=== PATIENT | female | born 1945 | race Caucasian/White ===

== ENCOUNTER → 2016-10-12 | Outpatient (CLI) | payer MEDICARE, BC ==
--- NOTE | 2016-10-12 12:33 | RADRPT ---
PROCEDURE: XR pelvis/left hip. CLINICAL INDICATION: Hip pain TECHNIQUE: AP pelvis/AP and lateral left hip views available for review. COMPARISON: 05/17/2015 FINDINGS: There is no change in the left total hip replacement. There is no evidence of loosening of the prost hesis. There is no evidence of hardware failure. There is diffuse osteopenia. No fractures are iden tified. No osseous lesions are present. The left hip is unremarkable. The SI joints are unremarkab le. The soft tissues are unremarkable. IMPRESSION: No change in left total hip replacement Diffuse osteopenia RPTAT: HGDB .Juwan Loredo MD, MD Date Time Electronically viewed and signed by .Juwan Loredo MD, MD on 10/12/2016 12:32 .B/
== END | disposition home or self-care (01) ==
LOC: HKI 11:13
PROVIDERS: ATTEND Orthopaedic Surgery
DX: Z47.89 Encounter for other orthopedic aftercare (principal); T84.061A Wear of articular bearing surface of internal prosthetic left hip joint, initial encounter; Z96.642 Presence of left artificial hip joint
CPT/HCPCS: 73502; G0463

== ENCOUNTER → 2016-12-16 | Outpatient (CLI) | payer MEDICARE, BC | END | disposition home or self-care (01) | LOC: HKI 09:56 | PROVIDERS: ATTEND Orthopaedic Surgery | DX: T84.061A Wear of articular bearing surface of internal prosthetic left hip joint, initial encounter (principal); Z96.642 Presence of left artificial hip joint | CPT/HCPCS: G0463 ==

== ENCOUNTER 2016-12-22 11:23 | Inpatient (IN) | payer MEDICARE, BC ==
[2016-12-16 12:06] VITALS: BMI 24.4
[~2016-12-22] VITALS: Ht 162.6 cm; Wt 62.7 kg
[2016-12-22] VITALS (23 sets, daily range): BP systolic 105–141; BP diastolic 58–73; PULSE 52–90; RESP 11–22; Ht 162.6 cm; Wt 62.7 kg
[~2016-12-22 11:23] MED LIST: BUPIVACAINE LIPOSOME/PF 266 MG/20 ML VIAL INFIL SCH; CELECOXIB 400 MG PO X1 DOSE PO SCH; EXPAREL NOTE (BUPIVICAINE LIPOSOMAL) XX SCH; LACTATED RINGER'S 1,000 ML IV SCH; PAIN COCKTAIL - VANCOMYCIN IRR SCH; PREGABALIN 300 MG PO X1 PO SCH; SOD CHLORIDE 0.9% IV SCH; SOD CHLORIDE 0.9% IVPB SCH; TRANEXAMIC ACID IV SCH; TRANEXAMIC ACID IVPB SCH; VANCOMYCIN 1 GM/NS 250 ML X1 BEFORE INCISION IVPB SCH; oxyCODONE (CR) 10 MG TAB [oxyCONTIN] X1 DOSE PO SCH; traMADOL 50 MG TAB X 1 DOSE PO SCH
[2016-12-22] MEDS ORDERED: NEOSTIGMINE 3 MG/3 ML SYRINGE ONE (13:28)
[2016-12-22] MEDS ORDERED: ROCURONIUM 50 MG INJ ONE (13:28)
[2016-12-22] MEDS ORDERED: FENTAnyl 50 MCG/ML VIAL ONE (13:28)
[2016-12-22] MEDS ORDERED: MIDAZOLAM 1 MG/ML 2 ML INJ ONE (13:28)
[2016-12-22] MEDS ORDERED: PROPOFOL 20 ML ONE (13:28)
[2016-12-22] MEDS ORDERED: ONDANSETRON 4 MG INJ ONE (13:28)
[2016-12-22] MEDS ORDERED: DEXAMETHASONE 4 MG/ML 1 ML INJ ONE (13:28)
[2016-12-22] MEDS ORDERED: CEFAZOLIN 1 GM INJ ONE (13:28)
[2016-12-22] MEDS ORDERED: GLYCOPYRROLATE 0.4 MG INJ ONE (13:28)
[2016-12-22] MEDS ORDERED: PROPOFOL 100 ML ONE (13:29)
[2016-12-22] MEDS ORDERED: ETOMIDATE 20 MG INJ ONE (13:29)
[2016-12-22] MEDS ORDERED: KETOROLAC 30 MG INJ ONE (14:02)
[2016-12-22] MEDS ORDERED: SUGAMMADEX SODIUM 200 MG/2 ML VIAL IV ONE ×2 (14:03→16:49)
[2016-12-22] MEDS ORDERED: VANCOMYCIN 1 GM INJ ONE (14:15)
[2016-12-22] MEDS ORDERED: POLYMYXIN B 500000 UNIT INJ ONE (14:15)
[2016-12-22] MEDS ORDERED: TOBRAMYCIN 1.2 GM POWDER ONE (14:15)
[2016-12-22] MEDS ORDERED: SODIUM CL BACTERIOSTATIC 30 ML INJ ONE (14:15)
[2016-12-22] MEDS ORDERED: BACITRACIN 50000 UNITS INJ ONE (14:19)
--- NOTE | 2016-12-22 14:25 | HPN ---
Date/Time of Note Date/Time of Note DATE: 12/22/16 TIME: 14:22 Interval H&P Admission Note Pt. seen H&P reviewed: No system changes No change from H&P by Dr. Andrey Damon on 12/18/16 LUKE ARMENTA MD Dec 22, 2016 14:25
[2016-12-22] MEDS ORDERED: HEPARIN 1000 UNITS/ML 10 ML INJ ONE (15:04)
[2016-12-22] MEDS ORDERED: EPHEDrine SULFATE 50 MG/5 ML SYG IV PRN (16:00)
[2016-12-22] MEDS ORDERED: LABETALOL HCL 20MG INJ IV PRN (16:00)
[2016-12-22] MEDS ORDERED: HYDROmorphONE (0.2 MG/ML) 10ML SYG IV PRN ×3 (16:00)
[2016-12-22] MEDS ORDERED: MEPERIDINE 25 MG INJ IV PRN (16:00)
[2016-12-22] MEDS ORDERED: OXYCODONE/ACETAMINOPHEN (5/325) TAB PO PRN ×2 (16:00)
[2016-12-22] MEDS ORDERED: hydrALAzine 20 MG INJ IV PRN (16:00)
[2016-12-22] MEDS ORDERED: MIDAZOLAM 1 MG/ML 2 ML INJ IV PRN (16:00)
[2016-12-22] MEDS ORDERED: TRIMETHOBENZAMIDE 100 MG/ML VIAL IM PRN (16:00)
[2016-12-22] MEDS ORDERED: ONDANSETRON 4 MG INJ IV PRN ×2 (16:00→18:00)
[2016-12-22] MEDS ORDERED: DIPHENHYDRAMINE 50 MG INJ IV PRN (16:00)
[2016-12-22] MEDS ORDERED: FENTAnyl 50 MCG/ML VIAL IV PRN ×3 (16:00)
--- NOTE | 2016-12-22 17:58 | OPR ---
Date/Time of Note Date/Time of Note DATE: 12/22/16 TIME: 17:56 Operative Report Free Text/Dictation Dictation # [id number] Preoperative Diagnosis Left FARIDA Polyethylene Wear Postoperative Diagnosis Same Operation/Procedure Performed Revision Left FARIDA Surgeon: LUKE ARMENTA MD animal assisted therapist: CASSANDRA NYE PA-C Anesthesia: general, spinal Estimated Blood Loss: 250 - 300 ml's Specimens Aerobic and anaerobic culture x 2 plus synovial tissue Grafts/Implants Depuy Duraloc liner and femoral head Complications: None LUKE ARMENTA MD Dec 22, 2016 17:58
[2016-12-22] MEDS ORDERED: HYDROCODONE/APAP (5/325) TAB PO PRN (18:00)
[2016-12-22] MEDS ORDERED: NA PHOSPHATE/BIPHOS 133 ML ENEMA PR PRN (18:00)
[2016-12-22] MEDS ORDERED: NACL 0.9% 3 ML SYG IV SCH (18:00)
[2016-12-22] MEDS ORDERED: DIPHENHYDRAMINE 25 MG CAP PO PRN (18:00)
[2016-12-22] MEDS ORDERED: ASPIRIN (EC) 325 MG TAB PO ONE (18:00)
[2016-12-22] MEDS ORDERED: HYDROmorphONE 1 MG/ML SYG IV PRN (18:00)
[2016-12-22] MEDS ORDERED: MAGNESIUM HYDROXIDE 30ML CUP PO PRN (18:00)
[2016-12-22] MEDS ORDERED: BISACODYL 10 MG SUPP PR PRN (18:00)
--- NOTE | 2016-12-22 18:11 | PN ---
Date/Time of Note Date/Time of Note DATE: 12/22/16 TIME: 18:09 Assessment/Plan Lines/Catheters IV Catheter Type (from Nrsg): Saline Lock Assessment/Plan Assessment/Plan Stable in PACU, s/p revision left FARIDA -continue Ancef until final culture results -pain meds as needed -ASA/SCDs -posterior hip precautions -OOB with PT -check AM labs -monitor drain -d/c bolivar in AM XR of the left hip is pending at this time Subjective 24 Hr Interval Summary Stable in PACU. Denies pain. Moving all extremities. Exam/Review of Systems Vital Signs Vitals Vital Signs Date Time Temp Pulse Resp B/P Pulse Ox O2 Delivery O2 Flow Rate FiO2 12/22/16 17:48 98.1 12/22/16 12:48 72 16 129/60 99 Room Air Exam Free Text/Dictation Hemovac: minimal Dressing dry Incision clean, dry, and intact without redness or drainage 5/5 Quadriceps, Tibialis Anterior, EHL, Gastroc, Soleus, Peroneals Normal sensation Palpable DT/PT, CR <2 sec No distal edema CASSANDRA NYE PA-C Dec 22, 2016 18:10
[2016-12-22 18:16] LABS: HEMATOCRIT 39.6 % (37.0-47.0); HEMOGLOBIN 13.1 g/dl (12.0-16.0)
[2016-12-22] MEDS: PANTOPRAZOLE (EC) 40 MG TAB PO SCH (18:28)
[2016-12-22] MEDS: traMADol 50 MG TAB PO SCH (18:29)
[2016-12-22] MEDS: LACTATED RINGER'S 1,000 ML IV SCH (18:30)
[2016-12-22] MEDS: CEFAZOLIN 2 GM/50 ML (PMX) 50 ML IVPB SCH (18:30)
--- NOTE | 2016-12-22 18:33 | RADRPT ---
PROCEDURE: Intraoperative imaging of the left hip with fluoroscopy. CLINICAL INDICATION: Left hip pain. Intraoperative. TECHNIQUE: Four images of the left hip were obtained in the operating room with portable equipment . No radiologist was in attendance. COMPARISON: 10/12/2016. FINDINGS: Images demonstrate placement of a total left hip arthroplasty. IMPRESSION: 1. Satisfactory intraoperative imaging of the left hip. RPTAT: QQ .Derrick Alberto MD, MD Date Time Electronically viewed and signed by .Derrick Alberto MD, on 12/22/2016 18:33 .R/
--- NOTE | 2016-12-22 18:37 | OPR ---
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 OPERATION PERFORMED: Revision left total hip arthroplasty. SURGEON: Luke Sampson MD PACS ADMINISTRATOR: CASSANDRA JOHNSON. COMPONENTS USED: DePuy Duraloc Howe 54 mm outer diameter x 32 mm inner diameter neutral polyethylene liner and 32+11 cobalt chrome femoral head with a 14/16 taper. SURGEON: Luke Sampson MD ANESTHESIA: Spinal plus general endotracheal intubation plus periarticular injection. ANESTHESIOLOGIST: BARBY VILLATORO MD. ESTIMATED BLOOD LOSS: 300 mL. INTRAVENOUS FLUIDS: 3000 mL crystalloid. SPECIMENS: Aerobic and anaerobic culture of joint fluid and synovial tissue for culture. DRAINS: Hemovac x1. COMPLICATIONS: None. DISPOSITION: Patient tolerated the procedure well and was taken to the recovery room in stable condition. INDICATIONS: The patient is a 71-year-old woman who underwent a left total hip arthroplasty through a posterior approach 25 years ago at another facility. 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 I felt she would benefit from a revision with a head liner exchange and possible allograft supplementation. The risks, benefits, alternatives of the procedure were explained in detail to the patient. I explained the risks to include but not be limited to bleeding and possible need for blood transfusion, infection, pain, stiffness, neurovascular injury, possible numbness, weakness, and/or paralysis anywhere from the hip down to the toes, fracture, instability, dislocation, leg length inequality, wear and/or loosening of the prosthesis and need for revision at a later date, wound healing problems, blood clots, pulmonary embolism and anesthetic complications such as heart attack, stroke, GI bleed, pneumonia and/or . Ample time was allowed for the patient to ask questions, all of which were addressed and answered. The patient understood the risks involved and wished to proceed. Informed consent was signed prior to the procedure. DESCRIPTION OF PROCEDURE: The left knee was initialed with a marking pen in the preoperative holding area to identify the correct operative site. The patient was brought to the operating room and transferred from the [facility] to the operating table, where she was administered a spinal anesthetic and then anesthetized and intubated. Time out was performed to confirm the left side was the correct operative site. She was given 1 gram of vancomycin 2 grams of intravenous Ancef within 1 hour prior to the incision. The patient was then turned in lateral decubitus position with the left side up. An axillary roll was placed under the right chest wall. She was secured into the pegboard and all bony prominences were well padded. The left hip and lower extremity were prepped and draped in usual sterile fashion. The posterolateral scar was excised. This was carried down to subcutaneous tissue and fascia with sharp dissection of the iliotibial band and gluteus hernandez muscle. Fascia were incised along the length of the wound. The gluteus hernandez muscle fibers were bluntly split and there was some fluid around the greater trochanteric claw which was swabbed for aerobic and anaerobic cultures allowed to clear with no evidence of purulent consistency. The posterior capsule and short external rotators were taken down off the posterior aspect of the greater trochanter and tagged it with #2 FiberWire. Synovial fluid was encountered and noted to be normal in color and consistency and swabbed for aerobic and anaerobic culture x2. The femoral head was dislocated from the acetabulum. The polyethylene liner had significant wear superiorly. The head was disimpacted from the trunnion. The head was a 28+8 head. The stem appeared well fixed with about 15 to 20 degrees of anteversion. The fibrous tissue around the acetabulum was debrided sharply to create a small pocket anteriorly for the trunnion to sit. Retractors were placed around the acetabulum. The acetabular component was well fixed. It had about 45 degrees of abduction and 20 to 25 degrees of anteversion. The polyethylene liner was removed with a screw and the locking ring was removed as well. The lateral short screws removed. I debrided in the hole the osteolytic lesion as best I could and irrigated with antibiotic saline and then injected 5 mL of Cerament bone void filler. This hardened. At this point, I trialed with various configurations. I found that the 54/32 neutral liner with a 32+11 head reproduced the best stability, leg length and offset. There was no available 28 liners anymore that were manufactured so we had to go up to the 32 liner. The 32 head only came in a +5 or a +11 head. The +5 head had some laxity and I did not feel the stability was optimal. The 32 + 11 head stability was quite good. There was 110 degrees of flexion. At 90 degrees of flexion and neutral abduction, the hip was stable posteriorly to 80 degrees of internal rotation. The hip came to full extension with no posterior impingement or anterior instability. In the position of sleep, the hip was stable posteriorly to 85 degrees of internal rotation. The Ranawat sign showed a combined forward flexion of 45 degrees. There was no shuck. A cross table AP pelvis was obtained showing the leg lengths and offsets to be equal. At this point, the trial head and liner were removed. A new locking ring was placed in the cup and a new 54/32 neutral polyethylene liner was opened and impacted into the acetabulum and sat flush circumferentially. The trunnion was debrided with a Bovie scratch pad to debride some mild trunnionosis. This was irrigated and dried and the real 32+11 cobalt chrome head was impacted on the trunnion and reduced in the acetabulum. Hip was taken through range of motion, had the same range of motion and stability with the trials. The hip was irrigated with Betadine and saline and then antibiotic saline pulsatile lavage. The soft tissues were infiltrated with a mixture of 0.5% ropivacaine, 4 mg Duramorph and 30 mg Toradol and a 266 mg of liposomal bupivacaine. This was done prior to irrigating with Betadine and saline. Stimulan beads mixed with tobramycin and vancomycin were mixed and placed in the deep portion of the wound. A Hemovac drain was placed in the deep portion of the wound and brought out through the anterolateral thigh. The posterior capsule was repaired back to the greater trochanter through drill holes with #2 FiberWire. The quadratus femoris was repaired back to the vastus lateralis with interrupted #1 Vicryl. The sciatic nerve was palpated and noted to be intact with no undue tension. The iliotibial band and gluteus hernandez muscle fascia was repaired with a running # 2 Stratafix. The subcutaneous layer was irrigated and closed with 2-0 Stratafix and then the skin was closed with 3-0 Vicryl and sarwat on the skin. Skin edges were sealed with Dermabond. The drain was secured with 3-0 nylon. Sponge and needle counts correct at the end of case. The wound was covered with silver Mepilex and the drains secured with 4 x 4 and Tegaderm. The patient was taken out of the pegboard and transferred to the [facility] where she was placed in supine position with an abduction pillow between her legs. She was awakened, extubated and taken to the recovery room in stable condition. Dictated By: LUKE GARCIA/[place] Conf#: [id number] DID#: [id number] MTDD
[2016-12-22 18:39] LABS: CALCIUM 8.6 mg/dl (8.4-10.2); CREATININE 0.63 mg/dl (0.44-1.00); POTASSIUM 3.5 mmol/L (3.5-5.1)
--- NOTE | 2016-12-22 19:05 | RADRPT ---
PROCEDURE: XR Hip 1 Views. CLINICAL INDICATION: Status post left hip surgery. TECHNIQUE: AP view of the left hip was performed. COMPARISON: October 12, 2016 FINDINGS: Left hip replacement is identified. Prosthetic components appear in appropriate position and alignm ent. New antibiotic beads are identified in the left hip. Surgical drain is identified in the left hip. No gross destructive bony lesions are seen. Diffuse osteopenia is noted. Soft tissue air is proc edural in nature. IMPRESSION: New antibiotic beads in the left hip. Left hip replacement. Prosthetic components appear in appropriate position and alignment. Surgical drain in the left hip. Osteopenia. RPTAT: AA .Alejandro Echevarria MD, MD Date Time Electronically viewed and signed by .Alejandro Echevarria MD, on 12/22/2016 19:04 .P/
--- NOTE | 2016-12-22 19:07 | RADRPT ---
PROCEDURE: XR Pelvis 1 View. CLINICAL INDICATION: Status post left hip surgery. TECHNIQUE: Single AP view of the pelvis. COMPARISON: Left hip x-ray October 12, 2016 FINDINGS: Left hip replacement is identified. Prosthetic components in appropriate position and alignment. N ew antibiotic beads are identified in the left hip. Surgical drain is seen over the left hip. Diff use osteopenia is observed. Moderate narrowing of the right hip joint is seen. Degenerative change s are noted in the lower lumbar spine. Martins catheter is identified over the lower pelvis. A few phleboliths are noted in the pelvis. Soft tissue air over the left hip is procedural in nature. IMPRESSION: Left hip replacement. Prosthetic components appear in appropriate position alignment. New antibiotic beads in the left hip. Surgical drain over the left hip. Osteopenia. Moderate osteoarthritis of the right hip. Degenerative changes in the lower lumbar spine. RPTAT: AA .Alejandro Echevarria MD, Date Time Electronically viewed and signed by .Alejandro Echevarria MD, on 12/22/2016 19:07 .P/
[2016-12-22] MEDS ORDERED: TRANEXAMIC ACID 630 MG in SOD CHLORIDE 0.9% 100 ML IVPB ONE (21:00)
[2016-12-22] MEDS: DOCUSATE SODIUM 100 MG CAP PO SCH (22:11)
[2016-12-23] VITALS (7 sets, daily range): BP systolic 87–122; BP diastolic 46–63; PULSE 62–66; RESP 14–22
[2016-12-23] MEDS ORDERED: TRANEXAMIC ACID 630 MG in SOD CHLORIDE 0.9% 100 ML IVPB ONE ×2
[2016-12-23] MEDS: traMADol 50 MG TAB PO SCH ×5 (00:57→23:37)
[2016-12-23] MEDS: LACTATED RINGER'S 1,000 ML IV SCH ×3 (01:43→17:43)
[2016-12-23] MEDS: CEFAZOLIN 2 GM/50 ML (PMX) 50 ML IVPB SCH ×3 (01:45→17:41)
[2016-12-23] MEDS: PANTOPRAZOLE (EC) 40 MG TAB PO SCH ×2 (05:12→17:42)
[2016-12-23 06:09] LABS: HEMATOCRIT 38.2 % (37.0-47.0); HEMOGLOBIN 12.2 g/dl (12.0-16.0)
[2016-12-23 06:37] LABS: CALCIUM 8.7 mg/dl (8.4-10.2); CREATININE 0.59 mg/dl (0.44-1.00); POTASSIUM 4.6 mmol/L (3.5-5.1)
[2016-12-23 07:07] LABS: ADD UMIC YES; UR ASCORBIC ACID NEGATIVE (NEGATIVE); UR BILIRUBIN (Dip) NEGATIVE (NEGATIVE); UR BLOOD (Dip) 1+ mg/dL (NEGATIVE); UR CLARITY CLEAR (CLEAR); UR COLOR STRAW (YELLOW); UR GLUCOSE (Dip) 2+ mg/dL (NEGATIVE); UR KETONES (Dip) TRACE mg/dL (NEGATIVE); UR LEUKOCYTE ESTERASE (Dip) NEGATIVE Leu/ul (NEGATIVE); UR NITRITE (Dip) NEGATIVE (NEGATIVE); UR RBC 10 /HPF (0-5); UR SPECIFIC GRAVITY (Dip) 1.013 (1.003-1.030); UR TOTAL PROTEIN (Dip) NEGATIVE (NEGATIVE); UR UROBILINOGEN (Dip) NEGATIVE (NEGATIVE)
--- NOTE | 2016-12-23 08:39 | PN ---
Date/Time of Note Date/Time of Note DATE: 12/23/16 TIME: 08:37 Assessment/Plan Lines/Catheters IV Catheter Type (from Nrsg): Peripheral IV Martins in Place (from Nrsg): Yes Assessment/Plan Assessment/Plan Stable POD #1, s/p revision left FARIDA -continue Ancef until final culture results -pain meds as needed -ASA/SCDs -OOB with PT -posterior hip precautions -monitor drain -check AM labs -d/c planning. Home verses [facility] upon discharge Subjective 24 Hr Interval Summary No acute overnight events. Denies significant pain. Did not start PT yesterday. VSS, afebrile. Will plan to go to [facility] versus home upon discharge. Exam/Review of Systems Vital Signs Vitals Vital Signs Date Time Temp Pulse Resp B/P Pulse Ox O2 Delivery O2 Flow Rate FiO2 12/23/16 08:15 97.6 55 14 96/53 98 12/23/16 06:08 Room Air 12/22/16 19:23 2.0 Intake and Output 12/22/16 12/22/16 12/23/16 15:00 23:00 07:00 Intake Total 3500 ml 120 ml 1700 ml Output Total 1780 ml 1190 ml Balance 3500 ml -1660 ml 510 ml Exam Free Text/Dictation Hemovac: 120cc Dressing dry Incision clean, dry, and intact without redness or drainage 5/5 Quadriceps, Tibialis Anterior, EHL, Gastroc, Soleus, Peroneals Normal sensation Palpable DT/PT, CR <2 sec No distal edema Results Result Diagram: 12/23/16 0455 12/23/16 0455 CASSANDRA NYE PA-C Dec 23, 2016 08:39
[2016-12-23] MEDS: DOCUSATE SODIUM 100 MG CAP PO SCH ×2 (09:27→21:00)
[2016-12-23] MEDS: ASPIRIN (EC) 325 MG TAB PO SCH ×2 (09:27→21:00)
[2016-12-23] MEDS: HYDROCODONE/APAP (5/325) TAB PO PRN ×2 (09:37→21:43)
--- NOTE | 2016-12-23 09:40 | CONS ---
DATE OF ADMISSION: 12/22/2016 DATE OF CONSULTATION: MEDICINE CONSULTATION CHIEF COMPLAINT: Status post left hip arthroplasty. HISTORY OF PRESENT ILLNESS: This is a 71-year-old female with a past medical history of GERD, histo ry of dyslipidemia, history of degenerative joint disease, previous history of left hip arthroplasty in 1993 who has undergone elective revision of her left total hip arthroplasty. The patient is not ed to have been having chronic left hip pain over the past several weeks and months, has not been am enable to conservative management. As a result, the patient was evaluated by orthopedic surgeon, Dr Phil Sampson, with a decision made to undergo revision of her total left hip arthroplasty. The patient underwent surgery yesterday without any intraoperative or postoperative complications. Currently, upon my evaluation of the patient at this time, she is currently stable. Denies any feve rs, chills, nausea, vomiting. PAST MEDICAL HISTORY: As stated above, history of GERD, dyslipidemia, degenerative joint disease. PAST SURGICAL HISTORY: Left hip arthroplasty in 1993. FAMILY HISTORY: Noncontributory. ALLERGIES: NONE. SOCIAL HISTORY: The patient is . MEDICATIONS: The patient's medications have been reviewed. REVIEW OF SYSTEMS: A 14-point review of systems was conducted. Pertinent positives as stated in th e HPI, otherwise negative. PHYSICAL EXAMINATION: VITAL SIGNS: Blood pressure is currently 122/63, respirations 18, pulse 63, temperature 98.4. HEENT: Head is normocephalic. Pupils are reactive to light. NECK: Supple. HEART: Regular rate. LUNGS: Show diminished breath sounds at the base. ABDOMEN: Soft, nontender to palpation. No rebound or guarding. EXTREMITIES: Negative for clubbing, cyanosis, no edema in the right leg. Left hip has dressing lan an, dry and intact. Continue ____. DERMATOLOGIC: No rashes. MUSCULOSKELETAL: No joint effusions. NEUROLOGIC: No focal deficits. LABORATORY DATA: Shows a BMP within normal limits, a hemoglobin 12.2, a hematocrit of 38.2. IMAGING STUDIES: Reviewed. ASSESSMENT AND PLAN: This is a 71-year-old female who presents with: 1. Status post revision of total left hip arthroplasty. The patient is postop day #1. The patient is currently stable. The plan is for physical therapy, continue pain control. Continue deep venou s thrombosis prophylaxis with aspirin. 2. History of gastroesophageal reflux disease. We will continue the patient on PPI. 3. Dyslipidemia. Continue to monitor. 4. Postoperative pain. Continue current pain regimen. 5. Debility. The patient received physical therapy. 6. Gastrointestinal and deep venous thrombosis prophylaxis. The patient will be on aspirin and PPI . Please note I spent over 25 minutes in [id number] time with the patient, and the patient is FULL C ODE. Dictated By: RENATE HUFF DO NR/[place] Conf#: [id number] DID#: [id number]
--- NOTE | 2016-12-23 13:54 | PDOCDIS ---
Discharge Instructions DIAGNOSIS Discharge Diagnosis: s/p revision Left FARIDA CONDITION Patient Condition: Good HOME CARE INSTRUCTIONS: Diet Instructions: Regular ACTIVITY: Activity Restrictions: Slowly Increase Activity Rest between Activity Avoid heavy lifting Do not operate Machinery Do not operate Power Tool Avoid Heavy Housework Keep Limb Elevated Bathing Restrictions: Shower FOLLOW UP/APPOINTMENTS Appointments follow up in the office on 01/01/17 OTHER ORDERS: Other Orders: S/P Posterior FARIDA Physical Therapy: Three times per week at home x 2 weeks Daily in Rehab/SNF WB STATUS: WBAT Strengthening exercises for both upper and un-operated lower extremities. 1. Gait training with front wheeled walker 2. Wide base gait, no pivot turns. 3. Abductor strengthening. 4. Quadriceps and hamstring strengthening. 5. May switch to cane in contra lateral hand 6 weeks after surgery. 6. Physical Therapy can open case if nursing is not available. 7. Ice Packs while at rest to surgical wound for 20 minutes, 3 times/day. 8. Patient requires mobile SCDs to reduce risk of developing DVT following FARIDA. Patient will use the mobile SCDs for 30 days postoperatively. Hip Precautions: no flexion beyond 90 degrees, no adduction, no internal rotation. Bathing assistance by home health aide twice weekly if Medicare patient. Occupational Therapy: Evaluation for assistive devices and ADL training. Wound Care: Keep incision dry & covered with Tegaderm until first visit with Dr. Sampson Anticoagulation Orders: Enteric Coated Aspirin 325 mg po bid x 6 weeks from date of surgery Follow-up:Call for an appointment with Dr. Sampson in 1 week after discharged from hospital at DME Orders: NILES, 3-in-1 Commode, Mobile SCDs CASSANDRA NYE PA-C Dec 23, 2016 13:54
[2016-12-23] MEDS ORDERED: PANT40TA4 PO (13:55)
[2016-12-23] MEDS ORDERED: HYDR-3498 PO (13:55)
[2016-12-23] MEDS ORDERED: ASPI325T32 PO (13:55)
[2016-12-23] MEDS ORDERED: TRAM50TA2 PO (13:55)
[2016-12-24] MEDS: CEFAZOLIN 2 GM/50 ML (PMX) 50 ML IVPB SCH ×4 (01:41→18:30)
[2016-12-24] MEDS: LACTATED RINGER'S 1,000 ML IV SCH ×3 (01:43→17:43)
[2016-12-24] MEDS: PANTOPRAZOLE (EC) 40 MG TAB PO SCH ×2 (05:45→18:30)
[2016-12-24] MEDS: traMADol 50 MG TAB PO SCH ×3 (05:45→18:31)
[2016-12-24 06:06] LABS: HEMOGLOBIN 10.6 g/dl (12.0-16.0)
[2016-12-24 06:15] LABS: CALCIUM 8.7 mg/dl (8.4-10.2); CREATININE 0.71 mg/dl (0.44-1.00); POTASSIUM 4.1 mmol/L (3.5-5.1)
--- NOTE | 2016-12-24 08:06 | PN ---
Date/Time of Note Date/Time of Note DATE: 12/24/16 TIME: 08:04 Assessment/Plan Lines/Catheters IV Catheter Type (from Nrsg): Peripheral IV Martins in Place (from Nrsg): Yes Assessment/Plan Assessment/Plan Stable POD #2, s/p revision left FARIDA -continue Ancef until final culture results -pain meds as needed -ASA/SCDs -OOB with PT -posterior hip precautions -drain removed -check AM labs -will plan to go to [facility] upon discharge Subjective 24 Hr Interval Summary No acute overnight events. Synovial fluid cultures show no growth to date. Denies significant pain. VSS, afebrile. Will plan to go to [facility] upon discharge. Exam/Review of Systems Vital Signs Vitals Vital Signs Date Time Temp Pulse Resp B/P Pulse Ox O2 Delivery O2 Flow Rate FiO2 12/23/16 20:46 98.4 69 22 95/50 100 12/23/16 14:47 Room Air 12/22/16 19:23 2.0 Intake and Output 12/23/16 12/23/16 12/24/16 15:00 23:00 07:00 Intake Total 50 ml 1170 ml 1000 ml Output Total 500 ml 1130 ml Balance 50 ml 670 ml -130 ml Exam Free Text/Dictation Hemovac: 30cc Dressing dry Incision clean, dry, and intact without redness or drainage 5/5 Quadriceps, Tibialis Anterior, EHL, Gastroc, Soleus, Peroneals Normal sensation Palpable DT/PT, CR <2 sec No distal edema Results Result Diagram: 12/24/16 0500 12/24/16 0500 CASSANDRA NYE PA-C Dec 24, 2016 08:06
[2016-12-24 08:19] VITALS: BP 98/51; RESP 16
[2016-12-24] MEDS: ASPIRIN (EC) 325 MG TAB PO SCH ×2 (08:59→20:44)
[2016-12-24] MEDS: DOCUSATE SODIUM 100 MG CAP PO SCH ×2 (08:59→20:43)
--- NOTE | 2016-12-24 09:00 | PN ---
DATE: 12/24/2016 SUBJECTIVE: The patient is stable. Pain is controlled. The patient had urinary retention yesterda y, necessitating Martins catheter placement. No other events noted. OBJECTIVE: VITAL SIGNS: Blood pressure is 98/51, respirations 16, pulse 60, temperature 98.5. HEENT: Head is normocephalic. NECK: Supple. HEART: Regular rate. LUNGS: Show diminished breath sounds at the base. ABDOMEN: Soft, nontender to palpation. No rebound or guarding. EXTREMITIES: Negative for clubbing or cyanosis. No edema. DERMATOLOGIC: No rashes. MUSCULOSKELETAL: The patient has a dressing over left hip clean, dry, and intact. NEUROLOGIC: No focal deficits. MEDICATIONS: The patient's medication were reviewed. LABORATORY DATA: Shows a normal BNP, hemoglobin 10.6, hematocrit of 33.0. ASSESSMENT AND PLAN: 1. Status post revision of total left hip arthroplasty. Postop day #2. The patient is currently s table. Continue physical therapy, continue pain control. 2. Gastroesophageal reflux disease. Continue PPI. 3. Dyslipidemia. Continue statin therapy. 4. Postoperative pain. Continue the current pain regimen. 5. Debility. Continue physical therapy. 6. Gastrointestinal and deep venous thrombosis prophylaxis. Continue aspirin and PPI. Dictated By: RENATE OCONNOR/[place] Conf#: [id number] DID#: [id number]
[2016-12-24] MEDS: HYDROCODONE/APAP (5/325) TAB PO PRN (16:32)
[2016-12-24 19:25] VITALS: BP 137/63; RESP 18
[2016-12-24] MEDS ORDERED: CEPHALEXIN 500 MG CAP PO SCH (19:30)
[2016-12-25] MEDS: traMADol 50 MG TAB PO SCH ×3 (00:26→12:00)
[2016-12-25] MEDS: PANTOPRAZOLE (EC) 40 MG TAB PO SCH (06:08)
[2016-12-25 06:14] LABS: ADD SCAN DIFF NO
[2016-12-25 06:18] LABS: BASOPHILS % 0.2 % (0.0-2.0); EOSINOPHILS # 0.1 10^3/ul (0.0-0.5); EOSINOPHILS % 1.4 % (0.0-7.0); HEMATOCRIT 33.3 % (37.0-47.0); HEMOGLOBIN 10.8 g/dl (12.0-16.0); LYMPHOCYTES # 1.2 10^3/ul (0.8-2.9); LYMPHOCYTES % 20.5 % (15.0-51.0); MEAN CORPUSCULAR HEMOGLOBIN 30.2 pg (29.0-33.0); MEAN CORPUSCULAR HGB CONC 32.4 g/dl (32.0-37.0); MEAN PLATELET VOLUME 10.3 fl (7.4-10.4); MONOCYTE # 0.5 10^3/ul (0.3-0.9); MONOCYTES % 7.8 % (0.0-11.0); NEUTROPHILS % 69.6 % (39.0-77.0); PLATELET COUNT 167 10^3/UL (140-415); RED BLOOD COUNT 3.58 10^6/ul (4.20-5.40); RED CELL DISTRIBUTION WIDTH 14.6 % (11.5-14.5); WHITE BLOOD COUNT 5.8 10^3/ul (4.8-10.8)
[2016-12-25 06:53] LABS: CALCIUM 8.9 mg/dl (8.4-10.2); CREATININE 0.69 mg/dl (0.44-1.00); POTASSIUM 3.6 mmol/L (3.5-5.1)
[2016-12-25 06:57] LABS: MAGNESIUM 1.7 mg/dl (1.7-2.5); PHOSPHORUS 4.2 mg/dl (2.5-4.9)
[2016-12-25 07:00] VITALS: BP 112/53; RESP 18
[2016-12-25] MEDS: CEPHALEXIN 500 MG CAP PO SCH ×2 (08:22→12:12)
[2016-12-25] MEDS: DOCUSATE SODIUM 100 MG CAP PO SCH (08:22)
[2016-12-25] MEDS: ASPIRIN (EC) 325 MG TAB PO SCH (08:22)
--- NOTE | 2016-12-25 08:24 | PN ---
Date/Time of Note Date/Time of Note DATE: 12/25/16 TIME: 08:23 Assessment/Plan Lines/Catheters IV Catheter Type (from Nrsg): Saline Lock Martins in Place (from Nrsg): No Assessment/Plan Assessment/Plan Stable POD #3, s/p revision left FARIDA -d/c abx -pain meds as needed -ASA/SCDs -posterior hip precautions -dressing changed -transfer to [facility] today -follow up in the office in 1 week Subjective 24 Hr Interval Summary No acute overnight events. H&H low but stable. Refused to do PT yesterday. Cultures show no growth x 3 days. VSS, afebrile. Stable for transfer to [facility] today. Exam/Review of Systems Vital Signs Vitals Vital Signs Date Time Temp Pulse Resp B/P Pulse Ox O2 Delivery O2 Flow Rate FiO2 12/25/16 07:00 97.7 59 18 112/53 96 12/23/16 14:47 Room Air 12/22/16 19:23 2.0 Intake and Output 12/24/16 12/24/16 12/25/16 15:00 23:00 07:00 Intake Total 125 ml 1140 ml 950 ml Output Total 600 ml 900 ml Balance 125 ml 540 ml 50 ml Exam Free Text/Dictation Dressing dry Incision clean, dry, and intact without redness or drainage 5/5 Quadriceps, Tibialis Anterior, EHL, Gastroc, Soleus, Peroneals Normal sensation Palpable DT/PT, CR <2 sec No distal edema Results Result Diagram: 12/25/160 12/25/16429 CASSANDRA NYE PA-C Dec 25, 2016 08:24
--- NOTE | 2016-12-25 10:10 | PN ---
DATE: 12/25/2016 SUBJECTIVE: The patient is stable, no acute events overnight. No fevers, chills, nausea, vomiting. OBJECTIVE: VITAL SIGNS: Blood pressure 112/53, respirations 18, pulse 59, temperature 97.7. HEENT: Head is normocephalic. NECK: Supple. HEART: Regular rate. LUNGS: Show diminished breath sounds at the bases. ABDOMEN: Soft, nontender to palpation. No rebound or guarding. EXTREMITIES: Negative for clubbing, cyanosis, or edema. DERMATOLOGIC: No rashes. MUSCULOSKELETAL: The patient has a dressing over the left hip, clean, dry and intact. NEUROLOGIC: No focal deficits. MEDICATIONS: The patient's medications have been reviewed. LABORATORY DATA: Shows white count 5.8, hemoglobin 10.8, hematocrit 33.3, platelet count is 167. T he patient's BMP within normal limits. ASSESSMENT AND PLAN: 1. Status post total left hip arthroplasty. The patient is postop day #3. Currently stable. Cont inue PT, OT. 2. Anemia, mild, possibly from operative blood loss. Hemoglobin levels have been stable. Continue to monitor. 3. Gastroesophageal reflux disease. Continue proton pump inhibitor. 4. Dyslipidemia. Continue statin therapy. 5. Debility. Continue physical therapy. 6. Gastrointestinal and deep venous thrombosis prophylaxis. Continue aspirin and proton pump inhib itor. DISPOSITION: The patient is pending possible transfer to [place] next 1 to 2 days. Dictated By: RENATE OCONNOR/[place] Conf#: [id number] DID#: [id number]
--- NOTE | 2016-12-25 10:52 | DS ---
DATE OF ADMISSION: 12/22/2016 DATE OF DISCHARGE: 12/25/2016 CONDITION ON DISCHARGE: Stable. 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 DISCHARGE DIAGNOSIS: Status post revision left total hip arthroplasty. PROCEDURE PERFORMED: Revision left total hip arthroplasty. HOSPITAL COURSE: This is a 71-year-old female who previously underwent a left total hip arthroplast y at [facility] approximately 25 years ago who presented to the office complaining of worseni ng pain. X-rays demonstrated significant polyethylene wear and osteolysis of the left total hip art hroplasty, and it was thought she would require revision left total hip arthroplasty. On 12/22/2016, the patient was admitted and taken to the operating room where she underwent a revisi on left total hip arthroplasty. There were no intraoperative complications. The patient tolerated the procedure well. She was taken to the recovery room in stable condition. Pain was well controll ed with oral pain medication. She was started on aspirin and SCDs for DVT prophylaxis. She remaine d hemodynamically stable and neurovascularly intact throughout her hospital stay. She began physica l therapy on postoperative day 1 and made satisfactory progress. Ultimately she was given deemed st able for transfer to the [facility] on postoperative day 3. Prior to transfer, the incision was in spected and noted to be clean, dry and intact. Dressing changes were done prior to patient going to the [facility]. LABORATORY ANALYSIS: Hemoglobin of 10.8, hematocrit 32.3. Chemistry panel was within normal limits . DISCHARGE MEDICATIONS: 1. [place] 5/325 mg. 2. Tramadol 50 mg. 3. Aspirin 325 mg. 4. Protonix 40 mg. 5. Additionally, the patient should resume all of her normal home medications. DISCHARGE INSTRUCTIONS: The patient will be transferred to the [facility] in stable condition. Sh e is to resume a normal diet. She is weightbearing as tolerated on the left lower extremity; mert vargas, does have posterior hip precautions. She will continue physical therapy at the [facility]. She will be transferred with the medications noted above and is to resume all of her normal home medica tions. The patient is to call the office or go to the emergency room for any concerns including inc reased redness, swelling, drainage, fever or any concerns regarding the operation or site of incisio n. FOLLOWUP: The patient to follow up in the office on 01/01/2017. Dictated By: CASSANDRA DUMONT/[place] Conf#: [id number] DID#: [id number]
[2016-12-25] MEDS: HYDROCODONE/APAP (5/325) TAB PO PRN (14:18)
== END 2016-12-25 16:30 | DRG 468 ==
LOC: REC 11:23 → MS1 20:15
PROVIDERS: ADMIT Orthopaedic Surgery; ATTEND Orthopaedic Surgery
PROC: 0SPB09Z Removal of Liner from Left Hip Joint, Open Approach (ICD-10-PCS; 2016-12-22)
PROC: 0SUE09Z Supplement Left Hip Joint, Acetabular Surface with Liner, Open Approach (ICD-10-PCS; 2016-12-22)
PROC: 0SPB0JZ Removal of Synthetic Substitute from Left Hip Joint, Open Approach (ICD-10-PCS; 2016-12-22)
PROC: 0SRB02Z Replacement of Left Hip Joint with Metal on Polyethylene Synthetic Substitute, Open Approach (ICD-10-PCS; principal; 2016-12-22 15:30)
DX: T84.84XA Pain due to internal orthopedic prosthetic devices, implants and grafts, initial encounter (principal); D50.0 Iron deficiency anemia secondary to blood loss (chronic); E78.5 Hyperlipidemia, unspecified; K21.9 Gastro-esophageal reflux disease without esophagitis; Y83.8 Other surgical procedures as the cause of abnormal reaction of the patient, or of later complication, without mention of misadventure at the time of the procedure
CPT/HCPCS: 72170; 73500; 73530; 80048; 81001; 83735; 84100; 85014; 85018; 85025; 86850; 86900; 86901; 86920; 87070; 87075; 87081; 87086; 88300; 97003; 97110; 97116; 97162; 97167; 97530; 97535; C1713; C9290; J0171; J0690; J0735; J1100; J1644; J1885; J2250; J2274; J2405; J2710; J3010; J3370; J7120

== ENCOUNTER → 2017-01-01 | Outpatient (CLI) | payer MEDICARE, BC ==
[~2017-01-01] MED LIST changes: +ASPI325T32 PO; -BUPIVACAINE LIPOSOME/PF 266 MG/20 ML VIAL INFIL SCH; -CELECOXIB 400 MG PO X1 DOSE PO SCH; -EXPAREL NOTE (BUPIVICAINE LIPOSOMAL) XX SCH; +HYDR-3498 PO; -LACTATED RINGER'S 1,000 ML IV SCH; -PAIN COCKTAIL - VANCOMYCIN IRR SCH; +PANT40TA4 PO; -PREGABALIN 300 MG PO X1 PO SCH; -SOD CHLORIDE 0.9% IV SCH; -SOD CHLORIDE 0.9% IVPB SCH; +TRAM50TA2 PO; -TRANEXAMIC ACID IV SCH; -TRANEXAMIC ACID IVPB SCH; -VANCOMYCIN 1 GM/NS 250 ML X1 BEFORE INCISION IVPB SCH; -oxyCODONE (CR) 10 MG TAB [oxyCONTIN] X1 DOSE PO SCH; -traMADOL 50 MG TAB X 1 DOSE PO SCH
== END | disposition home or self-care (01) ==
LOC: HKI 09:26
PROVIDERS: ATTEND Orthopaedic Surgery
DX: Z47.1 Aftercare following joint replacement surgery (principal); M16.12 Unilateral primary osteoarthritis, left hip; Z96.642 Presence of left artificial hip joint

== ENCOUNTER → 2017-01-29 | Outpatient (CLI) | payer MEDICARE, BC ==
--- NOTE | 2017-01-29 14:30 | RADRPT ---
PROCEDURE: XR Left Hip and pelvis. CLINICAL INDICATION: Left hip pain. Pelvic pain. Postop. TECHNIQUE: Two views. Frontal pelvis and frontal left hip. COMPARISON: 12/22/2016. FINDINGS: There is no fracture or dislocation. The soft tissues are normal. There is a left hip total arthroplasty which appears satisfactory. There are moderate degenerative changes of the right hip with joint space narrowing and osteophytes. There is no lytic or blastic lesion. The upper pelvis is not included on the image. IMPRESSION: 1. Satisfactory postoperative appearance of the left hip. 2. Moderate degenerative changes of the right hip. 3. Otherwise unremarkable study. RPTAT: QQ .Derrick Alberto MD, MD Date Time Electronically viewed and signed by .Derrick Alberto MD, on 01/29/2017 14:29 .R/
== END | disposition home or self-care (01) ==
LOC: HKI 10:00
PROVIDERS: ATTEND Orthopaedic Surgery
DX: T84.061D Wear of articular bearing surface of internal prosthetic left hip joint, subsequent encounter (principal); T84.05 Periprosthetic osteolysis of internal prosthetic joint; Y83.8 Other surgical procedures as the cause of abnormal reaction of the patient, or of later complication, without mention of misadventure at the time of the procedure; Z47.1 Aftercare following joint replacement surgery
CPT/HCPCS: 73502